=== PATIENT | female | born 1935 | race Caucasian/White ===

== ENCOUNTER 2016-06-17 13:13 | Day surgery (SDC) | payer MEDICARE ==
[~2016-06-17] VITALS: Ht 170.2 cm; Wt 90.7 kg
[~2016-06-17 13:13] MED LIST: AMLO5TAB2 PO; ASCO100T11 PO; ASPI-973 PO; ATOR20TA65 PO; CA C1TAB77 PO; CEPH500C PO; CHOL200025 PO; CYAN10008 PO; EZET1TAB6 PO; GABA-502 PO; GLUC-120 PO; HYDR25TA4 PO; KRIL500C PO; LACT1CAP13 PO; LEVO50TA6 PO; LOSA100T3 PO; METF500T4 PO; MULT-1018 PO; NAPR1TAB25 PO; NAPR220C11 PO; RES30 PO; Sodium Chloride LOK Flush 10 mL Syringe IV PRN; fentaNYL-PF 50 mCg/mL 2 mL Inj IVPUSH PRN; iron glycinate PO
[2016-06-17 14:04] VITALS: BP 127/67; PULSE 72; RESP 18; O2SAT 95
[2016-06-17] MEDS ORDERED: TURM500C7 PO (14:12)
[2016-06-17] MEDS: 0.9% Sodium Chloride 1,000 ML IV SCH ×2 (14:19→15:21)
[2016-06-17 15:47] VITALS: BP 107/63; PULSE 63; RESP 14; O2SAT 93
[2016-06-17 15:59] VITALS: BP 110/63; PULSE 65; RESP 14; O2SAT 95
[2016-06-17 16:12] VITALS: BP 120/61; PULSE 68; RESP 14; O2SAT 94
--- NOTE | 2016-06-18 02:07 | ENDO ---
[address] [address] ENDOSCOPY PROCEDURE PATIENT: MIRANDA ALMONTE : 1935 MR#: [id number] ADMIT: 06/17/2016 JOB ID: [id number] PRIMARY PROVIDER: Ronald Rodriguez DO PROCEDURE: Esophagogastroduodenoscopy with biopsies. INDICATIONS: An 80-year-old female, on regular aspirin, who had intermittently been using some Aleve as well of late. Last Friday, she developed three rapid succession bouts of coffee-ground emesis and then, within the next day or two, developed some black stool. She checked into Urgent Care for further evaluation. She was clinically stable at that time and not anemic by way of a CBC. Since NSAIDs were held, she was commenced on b.i.d. Prilosec and encouraged to follow up today for upper endoscopy. She has not had any further bouts of melena, nor any problems with nausea, vomiting. EQUIPMENT: GIF-H180. SEDATION: 3 mg Versed and 75 mcg fentanyl. COMPLICATIONS: None identified. PROCEDURE INFORMATION: After the risks and benefits were explained, written and verbal informed consent was obtained. The patient was brought into the endoscopy suite and placed into the left lateral decubitus position. Sedation was achieved as above. The scope was introduced into the mouth through the bite block, and advanced under direct visualization to the second portion of the duodenum. The scope was slowly withdrawn to carefully examine the mucosa for any defects or lesions. Retroflexed views were accomplished in the stomach. The stomach was decompressed, the scope removed from the patient who tolerated the procedure well. FINDINGS: 1. Duodenum: No new or old blood. No ulcers, erosions, mass lesions. 2. Stomach: No active ulcers, no masses, no outlet obstruction. The patient had a diffuse moderate gastropathy characterized by slightly cobblestoned and erythematous, even somewhat edematous mucosa throughout. There were scattered areas of old obvious erosive and superficial ulcerative changes that appeared to be in various states of healing. I did not appreciate any mass lesion and nothing active or high risk at present. Retroflexed views of the LES were otherwise unremarkable. 3. Esophagus: The squamocolumnar junction correlated with the top of the gastric folds. There was a subtle sliding hiatal hernia. No acute erosive changes. No strictures. No mass lesions throughout. ENDOSCOPIC DIAGNOSES: 1. Subtle sliding hiatal hernia. 2. Moderate diffuse erosive gastropathy. RECOMMENDATIONS: 1. Await histopathology. If Helicobacter is found, it will need to be eradicated with standard triple therapy recognizing the patient's allergy to PENICILLIN. 2. Hold off on further Aleve for the time being. 3. Okay to restart aspirin daily. 4. Decrease Prilosec down to 20 mg once daily. 5. I would recommend continuation of the Prilosec for at least one more week, and then have discussion in primary care as to the long-term utility of this medication in the context of daily aspirin consumption. 6. Follow up GI on a p.r.n. basis.
--- NOTE | 2016-06-19 11:21 | PATH ---
SURGICAL PATHOLOGY Attending Physician:Marielle Alberts CASE STATUS: Signed Out PATIENT NAME: MIRANDA ALMONTE PID: [id number] : 1935 DATE COLLECTED:06/17/2016 00:00 SPECIMEN: Gastric, Biopsy CLINICAL HISTORY: GASTRIC BIOPSY FINAL DIAGNOSIS: Gastric Biopsy: Moderate diffuse chronic gastritis involving antral mucosa. Immunohistochemistry for Helicobacter pylori pending to be reported by addendum. Negative for intestinal metaplasia. Negative for dysplasia and malignancy. ICD10 K29.70 GROSS DESCRIPTION: The specimen is received in one formalin filled container labeled with the patient's name, sublabeled "gastric" and consists of a 0.5 x 0.3 x 0.2 CM portion of tissue which is entirely submitted in one cassette. 06/18/2016 [facility] ICD-9 CODES: CPT CODES: 1: 34799, 40082 PROCEDURE/ADDENDA: Immunohistochemistry SPI Interpretation The sections of gastric mucosa are stained with polyclonal antibody to Helicobacter pylori using immunohistochemical technique. The positive and negative controls stain appropriately. Result: The patient tissue shows no staining. Interpretation: The gastric body mucosa is negative for Helicobacter organisms by immunohistochemical stains. Results-Comments * This test was developed and its performance characteristics determined by [facility]. It has not been cleared or approved by the U.S. Food and Drug Administration. The FDA has determined that such clearance or approval is not necessary. This test is used for clinical purposes. It should not be regarded as investigational or for research. Electronically Signed Out Desiree Palomares MD Electronically Signed Out Mike Dave MD [facility] Pathology [facility] [address], [place] [address] Technical component performed at [facility], [address], [place], [address]
== END 2016-06-17 23:59 | disposition home or self-care (01) ==
LOC: END 13:13
PROVIDERS: ATTEND Internal Medicine Gastroenterology
DX: K29.50 Unspecified chronic gastritis without bleeding (principal); K44.9 Diaphragmatic hernia without obstruction or gangrene; I10 Essential (primary) hypertension; E11.9 Type 2 diabetes mellitus without complications; G47.33 Obstructive sleep apnea (adult) (pediatric); E03.9 Hypothyroidism, unspecified
CPT/HCPCS: 43239; G0500; J2250; J7030